=== PATIENT | female | born 1985 | race American Indian/Alaskan Native ===

== ENCOUNTER 2019-05-02 18:02 | Emergency (ER) | payer OTHER ==
--- NOTE | 2019-05-02 19:46 | Emergency Department Report ---
Blank Doc - Documentation Documentation: 34-year-old female that presents with left ankle, left shoulder, neck and lower back pain. This initial assessment/diagnostic orders/clinical plan/treatment(s) is/are subject to change based on patient's health status, clinical progression and re- assessment by fellow clinical providers in the ED. Further treatment and workup at subsequent clinical providers discretion. Patient/guardians urged not to elope from the ED as their condition may be serious if not clinically assessed and managed. Initial orders include: 1- Patient sent to [facility] for further evaluation and treatment 2- xrays
[2019-05-02 19:47] VITALS: BP 127/87
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
[2019-05-02] MEDS ORDERED: IBUPROFEN 600 MG TAB PO ONE (20:54)
[2019-05-02] MEDS ORDERED: ACETAMINOPHEN 500 MG TAB PO ONE (20:54)
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
== END 2019-05-02 21:32 | disposition home or self-care (01) ==
LOC: ED 18:02
DX: S16.1XXA Strain of muscle, fascia and tendon at neck level, initial encounter (principal); S43.402A Unspecified sprain of left shoulder joint, initial encounter; S93.492A Sprain of other ligament of left ankle, initial encounter; V49.49XA Driver injured in collision with other motor vehicles in traffic accident, initial encounter; Y93.89 Activity, other specified; Y92.488 Other paved roadways as the place of occurrence of the external cause; Y99.8 Other external cause status
CPT/HCPCS: 72040; 72100; 99283